=== PATIENT | female | born 1995 | race Caucasian/White ===

== ENCOUNTER → 2017-10-01 | Outpatient (CLI) | payer OTHER | LOC: M RAD 15:54 | DX: Z36.2 Encounter for other antenatal screening follow-up (principal) ==

== ENCOUNTER → 2017-11-24 | Outpatient (CLI) | payer OTHER ==
[2017-11-24 10:52] LABS: HEMATOCRIT 29.7 % (36.0-47.0); HEMOGLOBIN 10.1 g/dl (12.0-16.0); MEAN CORPUSCULAR HEMOGLOBIN 28.8 pg (27.0-33.0); MEAN CORPUSCULAR VOLUME 84.6 fl (80.0-96.0); PLATELET COUNT, AUTOMATED 290 10^3/uL (150-450); RED BLOOD COUNT 3.51 10^6/uL (4.00-5.40); WHITE BLOOD COUNT 11.2 10^3/uL (4.0-10.0)
[2017-11-24 11:13] LABS: GLUCOSE CHALLENGE TEST 1 HOUR 113 MG/DL (LESS THAN 140)
== END ==
LOC: M LAB 09:08
DX: Z34.82 Encounter for supervision of other normal pregnancy, second trimester (principal)

== ENCOUNTER → 2018-02-05 | Outpatient (REF) | payer OTHER | LOC: M LAB REF 17:07 | DX: Z34.83 Encounter for supervision of other normal pregnancy, third trimester (principal); Z3A.00 Weeks of gestation of pregnancy not specified ==

== ENCOUNTER 2018-02-21 09:37 | Outpatient (CLI) | payer OTHER | END 2018-02-21 11:24 | disposition home or self-care (01) | LOC: M LDO 09:37 | DX: O26.893 Other specified pregnancy related conditions, third trimester (principal); Z3A.38 38 weeks gestation of pregnancy | CPT/HCPCS: 59025 ==

== ENCOUNTER 2018-02-22 01:10 | Inpatient (IN) | payer OTHER ==
[2018-02-22] MEDS ORDERED: LR 1,000 ML IV (01:42)
[2018-02-22] MEDS: LACTATED RINGER'S 1000 ML IV (01:42)
[2018-02-22] MEDS: BICITRA 30ML SOLN UDC PO (01:45)
[2018-02-22] MEDS: ceFAZolin SOD 1 GM in D5W MINI-BAG PLUS 50 ML IV (01:45)
[2018-02-22 01:47] LABS: HEMOGLOBIN 11.2 g/dl (12.0-15.5); MEAN CORPUSCULAR HEMOGLOBIN 26.9 pg (27.0-33.0); MEAN CORPUSCULAR HGB CONC 33.9 g/dl (32.0-36.5); MEAN CORPUSCULAR VOLUME 79.1 fl (80.0-96.0); PLATELET COUNT, AUTOMATED 300 10^3/uL (150-450); RED BLOOD COUNT 4.17 10^6/uL (4.00-5.40); RED CELL DISTRIBUTION WIDTH 13.7 % (11.5-14.5); WHITE BLOOD COUNT 12.9 10^3/uL (4.0-10.0)
[2018-02-22] MEDS ORDERED: MORPHINE PRES-FREE INJ 10 MG/10 ML VIAL (J2274) As Ordered (02:05)
[2018-02-22] MEDS ORDERED: NALBUPHINE HCL 10 MG/ML AMP (J2300) IV (02:12)
[2018-02-22] MEDS ORDERED: NALOXONE INJ 0.4 MG/1 ML VIAL (J2310) IV ×2 (02:12)
[2018-02-22] MEDS ORDERED: ONDANSETRON 4MG/2ML VIAL (J2405) IV ×2 (02:12→03:30)
[2018-02-22] MEDS ORDERED: KETOROLAC 60 MG/2 ML VIAL (J1885) As Ordered (02:33)
[2018-02-22] MEDS ORDERED: OXYTOCIN INJ 10 UNITS/ML VIAL (J2590) As Ordered ×3 (02:33)
[2018-02-22] MEDS ORDERED: ONDANSETRON 4MG/2ML VIAL (J2405) As Ordered (02:33)
[2018-02-22] MEDS ORDERED: ePHEDrine SULFATE 25 MG/5 ML(5MG/ML) SYRINGE As Ordered (02:47)
[2018-02-22] MEDS: LR 1,000 ML IV ×2 (03:07→03:30)
[2018-02-22] MEDS ORDERED: DOCUSATE SODIUM 100 MG CAP PO (03:15)
[2018-02-22] MEDS ORDERED: RHOGAM 300 MCG (1500 IU) INJ (J2790) IM (03:15)
[2018-02-22] MEDS ORDERED: MEASLES,MUMPS,RUBELLA VACCINE INJ (MMR-II) (90707) SC (03:15)
[2018-02-22] MEDS ORDERED: MEPERIDINE INJ 25 MG/ML VIAL (J2175) As Ordered (03:24)
[2018-02-22] MEDS ORDERED: METOCLOPRAMIDE INJ 10MG/2ML VIAL (J2765) IV (03:30)
[2018-02-22] MEDS ORDERED: fentaNYL 100 MCG/2 ML INJECTION (J3010) IV (03:30)
[2018-02-22] MEDS: MEPERIDINE INJ 25 MG/ML VIAL (J2175) IV (03:34)
[2018-02-22] MEDS: METHYLERGONOVINE MALEATE 0.2 MG/ML VIAL (J2210) IM (04:00)
[2018-02-22] MEDS: PERCOCET 5MG/325MG TAB PO (06:18)
[2018-02-22] MEDS: PRENATAL VITAMINS CHEWABLE TABLET PO (08:12)
[2018-02-22] MEDS: KETOROLAC 30 MG/ML VIAL (J1885) IV ×3 (08:12→20:31)
[2018-02-22] MEDS: METOCLOPRAMIDE INJ 10MG/2ML VIAL (J2765) IV (13:40)
[2018-02-22] MEDS: ONDANSETRON 4MG/2ML VIAL (J2405) IV (20:31)
[2018-02-23] MEDS: ONDANSETRON 4MG/2ML VIAL (J2405) IV (02:42)
[2018-02-23] MEDS: KETOROLAC 30 MG/ML VIAL (J1885) IV (02:43)
[2018-02-23 07:43] LABS: HEMATOCRIT 29.6 % (36.0-47.0); HEMOGLOBIN 9.9 g/dl (12.0-15.5); MEAN CORPUSCULAR HEMOGLOBIN 26.9 pg (27.0-33.0); MEAN CORPUSCULAR HGB CONC 33.4 g/dl (32.0-36.5); MEAN CORPUSCULAR VOLUME 80.4 fl (80.0-96.0); PLATELET COUNT, AUTOMATED 273 10^3/uL (150-450); RED BLOOD COUNT 3.68 10^6/uL (4.00-5.40)
[2018-02-23] MEDS: PRENATAL VITAMINS CHEWABLE TABLET PO (08:31)
[2018-02-23] MEDS: IBUPROFEN 800 MG TAB PO (10:29)
[2018-02-23] MEDS: PERCOCET 5MG/325MG TAB PO (14:46)
== END 2018-02-23 16:20 | disposition home or self-care (01) | DRG 766 ==
LOC: M LDI 01:10 → M OBS 05:15
PROVIDERS: Specialist
PROC: 10D00Z1 Extraction of Products of Conception, Low, Open Approach (ICD-10-PCS; principal; 2018-02-22 02:11)
DX: O82 Encounter for cesarean delivery without indication (principal); Z3A.39 39 weeks gestation of pregnancy; Z37.0 Single live birth; Z87.59 Personal history of other complications of pregnancy, childbirth and the puerperium

== ENCOUNTER → 2018-04-17 | Outpatient (CLI) | payer OTHER ==
[2018-04-17 13:15] LABS: BASO # 0.1 10^3/uL (0.0-0.2); BASO % 1.2 % (0.0-1.0); EOS # 0.1 10^3/uL (0.0-0.50); EOS % 1.4 % (0.0-3.0); HEMATOCRIT 39.8 % (36.0-47.0); IMMATURE GRANULOCYTE % 0.5 % (0-3.0); LYMPH # 2.2 10^3/uL (1.5-6.5); LYMPH % 37.4 % (24.0-44.0); MEAN CORPUSCULAR HEMOGLOBIN 26.6 pg (27.0-33.0); MEAN CORPUSCULAR HGB CONC 32.7 g/dl (32.0-36.5); MEAN CORPUSCULAR VOLUME 81.6 fl (80.0-96.0); MONO # 0.5 10^3/uL (0.0-0.8); NEUTROPHILS # 2.9 10^3/uL (1.8-7.7); NEUTROPHILS % 50.5 % (36.0-66.0); PLATELET COUNT, AUTOMATED 312 10^3/uL (150-450); RED BLOOD COUNT 4.88 10^6/uL (4.00-5.40); RED CELL DISTRIBUTION WIDTH 13.6 % (11.5-14.5); WHITE BLOOD COUNT 5.8 10^3/uL (4.0-10.0)
[2018-04-17 13:33] LABS: ESTIMATED AVERAGE GLUCOSE 94 MG/DL (60-110); HEMOGLOBIN A1c 4.9 %
[2018-04-17 13:56] LABS: ALBUMIN 3.9 GM/DL (3.2-5.2); ALBUMIN/GLOBULIN RATIO 1.26 (1.00-1.93); ALKALINE PHOSPHATASE 106 U/L (45-117); ALT/SGPT 39 U/L (12-78); ANION GAP 7 MEQ/L (8-16); AST/SGOT 17 U/L (7-37); BILIRUBIN,TOTAL 0.3 MG/DL (0.2-1.0); BLOOD UREA NITROGEN 8 MG/DL (7-18); C REACTIVE PROTEIN QUANTITATIV < 0.30 MG/DL (0.00-0.30); CALCIUM LEVEL 8.8 MG/DL (8.5-10.1); CARBON DIOXIDE LEVEL 29 MEQ/L (21-32); CHLORIDE LEVEL 107 MEQ/L (98-107); CHOLESTEROL LEVEL 182 MG/DL (<200); CHOLESTEROL RISK RATIO 2.843 (<5); CREATININE FOR GFR 0.63 MG/DL (0.55-1.30); FREE T4 0.75 NG/DL (0.76-1.46); GLOMERULAR FILTRATION RATE > 60.0 (>60); GLUCOSE, FASTING 85 MG/DL (70-100); HDL CHOLESTEROL 64 MG/DL (>40); LDL CHOLESTEROL 92.8 MG/DL (<100); NON-HDL-C 118 MG/DL; POTASSIUM SERUM 4.1 MEQ/L (3.5-5.1); PTH INTACT 67.1 PG/ML (18.5-88.0); SODIUM LEVEL 143 MEQ/L (136-145); THYROID STIMULATING HORMONE 0.839 uIU/ML (0.358-3.740); TOTAL 25(OH) VITAMIN D 17.5 NG/ML (30.0-100.0); TRIGLYCERIDES LEVEL 126 MG/DL (<150)
== END ==
LOC: M LAB 12:19
DX: Z83.3 Family history of diabetes mellitus (principal)

== ENCOUNTER 2019-05-31 08:01 | Emergency (ER) | payer OTHER ==
[~2019-05-31] VITALS: Ht 157.5 cm; Wt 62.3 kg
[~2019-05-31 08:01] MED LIST: COLA100C5 PO; IBUP-1114 PO; OXYC1TAB23 PO; PREN27TA3 PO; TUMS500C PO
[2019-05-31] MEDS ORDERED: ONDA4TAB5 PO (08:07)
[2019-05-31 08:26] LABS: BASO # 0.1 10^3/uL (0.0-0.2); BASO % 0.8 % (0.0-1.0); EOS % 0.5 % (0.0-3.0); HEMATOCRIT 42.3 % (36.0-47.0); HEMOGLOBIN 14.5 g/dl (12.0-15.5); LYMPH # 1.9 10^3/uL (1.5-5.0); LYMPH % 31.5 % (24.0-44.0); MEAN CORPUSCULAR HEMOGLOBIN 29.4 pg (27.0-33.0); MEAN CORPUSCULAR HGB CONC 34.3 g/dl (32.0-36.5); MEAN CORPUSCULAR VOLUME 85.6 fl (80.0-96.0); MONO # 0.5 10^3/uL (0.0-0.8); NEUTROPHILS # 3.6 10^3/uL (1.5-8.5); NEUTROPHILS % 58.9 % (36.0-66.0); PLATELET COUNT, AUTOMATED 321 10^3/uL (150-450); RED BLOOD COUNT 4.94 10^6/uL (4.00-5.40); WHITE BLOOD COUNT 6.2 10^3/uL (4.0-10.0)
--- NOTE | 2019-05-31 10:13 | REP ---
REASON: Vaginal bleeding. PERTINENT PRIORS: None. Transvesical and transvaginal imaging were obtained. The uterus measures 7.6 x 3.6 x 4.5 cm. The parenchymal echopattern is within normal limits. The endometrial echocomplex is seen with a small nearly anechoic structure in the endometrial cavity. This is slightly irregular. By measurements, this would be consistent with a gestational age of 5 weeks 5 days. Doppler of the anechoic structure, shows no cardiac activity. No echogenic material is identifiable in the suspected gestational sac that would be considered consistent with a pole. Both ovaries are within normal limits. The right measures 2.4 x 1.2 x 1.6 cm, and the left 2.3 x 1.8 x 2 cm. The right ovarian RI is 0.52 and the left is 0.56. IMPRESSION: Possible early IUP, as described above. This needs to be correlated clinically with appropriate followup. Electronically Signed by Leland Monahan DO 05/31/2019 11:23 A
[2019-05-31 10:27] VITALS: BP 134/74
[2019-05-31 11:32] LABS: CHLAMYDIA DNA AMPLIFICATION NEGATIVE (NEGATIVE); GC DNA AMPLIFICATION NEGATIVE (NEGATIVE)
== END 2019-05-31 10:28 | disposition home or self-care (01) ==
LOC: M ED 08:01
DX: O26.851 Spotting complicating pregnancy, first trimester (principal); Z88.2 Allergy status to sulfonamides; Z3A.00 Weeks of gestation of pregnancy not specified

== ENCOUNTER → 2019-06-02 | Outpatient (CLI) | payer OTHER ==
[~2019-06-02] MED LIST changes: +IBUP80TA PO; +ONDA-83 PO; +ZOFR4TAB16 PO
[2019-06-02 09:20] LABS: BASO # 0.1 10^3/uL (0.0-0.2); BASO % 1.1 % (0.0-1.0); EOS # 0.1 10^3/uL (0.0-0.5); EOS % 1.4 % (0.0-3.0); HEMATOCRIT 39.7 % (36.0-47.0); HEMOGLOBIN 13.7 g/dl (12.0-15.5); LYMPH # 1.8 10^3/uL (1.5-5.0); LYMPH % 31.9 % (24.0-44.0); MEAN CORPUSCULAR HGB CONC 34.5 g/dl (32.0-36.5); MEAN CORPUSCULAR VOLUME 83.9 fl (80.0-96.0); MONO # 0.5 10^3/uL (0.0-0.8); MONO % 8.1 % (0.0-5.0); NEUTROPHILS # 3.3 10^3/uL (1.5-8.5); PLATELET COUNT, AUTOMATED 319 10^3/uL (150-450); RED BLOOD COUNT 4.73 10^6/uL (4.00-5.40); WHITE BLOOD COUNT 5.7 10^3/uL (4.0-10.0)
[2019-06-02 10:04] LABS: ALBUMIN 4.2 GM/DL (3.2-5.2); ALT/SGPT 17 U/L (12-78); BILIRUBIN,TOTAL 0.6 MG/DL (0.2-1.0); BLOOD UREA NITROGEN 8 MG/DL (7-18); CALCIUM LEVEL 8.7 MG/DL (8.5-10.1); CARBON DIOXIDE LEVEL 25 MEQ/L (21-32); CHLORIDE LEVEL 106 MEQ/L (98-107); CREATININE FOR GFR 0.69 MG/DL (0.55-1.30); GLOMERULAR FILTRATION RATE > 60.0 (>60); GLUCOSE, FASTING 94 MG/DL (70-100); HCG, SERUM QUANTITATIVE 1351 MIU/ML; POTASSIUM SERUM 3.8 MEQ/L (3.5-5.1); SODIUM LEVEL 139 MEQ/L (136-145); TOTAL PROTEIN 6.7 GM/DL (6.4-8.2)
== END ==
LOC: M LAB 07:19
PROVIDERS: ATTEND Obstetrics & Gynecology
DX: O20.0 Threatened abortion (principal); Z3A.00 Weeks of gestation of pregnancy not specified

== ENCOUNTER → 2019-06-04 | Outpatient (CLI) | payer OTHER | LOC: M LAB 07:26 | PROVIDERS: ATTEND Advanced Practice Midwife | DX: O20.0 Threatened abortion (principal) ==

== ENCOUNTER → 2019-06-06 | Outpatient (CLI) | payer OTHER ==
[~2019-06-06] MED LIST changes: -ONDA-83 PO; +ONDA4TAB5 PO
--- NOTE | 2019-06-06 07:36 | REP ---
First trimester obstetric ultrasound for threatened : The studies performed transabdominal, endovaginal and Doppler ultrasound assessment. The uterus is anteverted and normal size measuring 8.0 x 3.5 x 5.6 cm. The endometrium is not thickened measuring 7.5 mm. There is no intrauterine gestational sac or pole. The right ovary measures 2.5 x 1.3 x 2.4 cm. The left ovary measures 2.8 x 1.9 x 2.5 cm. The ovaries are normal size. There are no dominant ovarian masses or cysts. There is no free fluid in the pelvis. There is vascular flow in both ovaries. The Doppler resistive index in the parenchymal arteries of the right ovary is 0.73 and left ovary 0.62. Impression: There is no visible intrauterine gestation at this time . Otherwise, negative pelvic ultrasound. Electronically Signed by Vishal Caballero MD 06/06/2019 07:28 A
== END ==
LOC: M RAD 06:05
PROVIDERS: ATTEND Obstetrics & Gynecology
DX: O02.0 Blighted ovum and nonhydatidiform mole (principal)

== ENCOUNTER → 2019-06-09 | Outpatient (CLI) | payer OTHER | LOC: M LAB 10:48 | PROVIDERS: ATTEND Advanced Practice Midwife | DX: O20.0 Threatened abortion (principal); Z3A.00 Weeks of gestation of pregnancy not specified ==

== ENCOUNTER → 2019-06-09 | Outpatient (REF) | payer OTHER | LOC: M LAB REF 15:45 | PROVIDERS: ATTEND Obstetrics & Gynecology | DX: O20.0 Threatened abortion (principal) ==

== ENCOUNTER 2019-06-10 15:30 | Observation (INO) | payer OTHER ==
[~2019-06-10] VITALS: Ht 160 cm; Wt 63.1 kg
[~2019-06-10 15:30] MED LIST changes: -IBUP80TA PO; -ZOFR4TAB16 PO
[2019-06-10 16:16] LABS: BASO # 0.1 10^3/uL (0.0-0.2); BASO % 0.8 % (0.0-1.0); EOS # 0.1 10^3/uL (0.0-0.5); EOS % 1.5 % (0.0-3.0); HEMATOCRIT 40.5 % (36.0-47.0); HEMOGLOBIN 14.3 g/dl (12.0-15.5); LYMPH % 27.4 % (24.0-44.0); MEAN CORPUSCULAR HEMOGLOBIN 30.2 pg (27.0-33.0); MEAN CORPUSCULAR HGB CONC 35.3 g/dl (32.0-36.5); MEAN CORPUSCULAR VOLUME 85.6 fl (80.0-96.0); MONO # 0.6 10^3/uL (0.0-0.8); MONO % 7.8 % (0.0-5.0); NEUTROPHILS # 4.6 10^3/uL (1.5-8.5); NEUTROPHILS % 62.2 % (36.0-66.0); PLATELET COUNT, AUTOMATED 295 10^3/uL (150-450); RED BLOOD COUNT 4.73 10^6/uL (4.00-5.40); WHITE BLOOD COUNT 7.3 10^3/uL (4.0-10.0)
[2019-06-10 16:56] LABS: ALBUMIN 4.2 GM/DL (3.2-5.2); ALT/SGPT 14 U/L (12-78); BILIRUBIN,DIRECT 0.1 MG/DL (0.0-0.2); BILIRUBIN,TOTAL 0.3 MG/DL (0.2-1.0); BLOOD UREA NITROGEN 6 MG/DL (7-18); CALCIUM LEVEL 9.1 MG/DL (8.5-10.1); CARBON DIOXIDE LEVEL 26 MEQ/L (21-32); CHLORIDE LEVEL 106 MEQ/L (98-107); CREATININE FOR GFR 0.65 MG/DL (0.55-1.30); GLOMERULAR FILTRATION RATE > 60.0 (>60); GLUCOSE, FASTING 91 MG/DL (70-100); HCG, SERUM QUANTITATIVE 1896 MIU/ML; LIPASE 180 U/L (73-393); SODIUM LEVEL 141 MEQ/L (136-145); TOTAL PROTEIN 7.3 GM/DL (6.4-8.2)
--- NOTE | 2019-06-10 18:08 | REP ---
Emergency first trimester obstetric sonography: History: Pelvic pain rule out ectopic. 7 weeks 4 days by dates. Transabdominal and transvaginal scanning are performed. Uterus is normal in size with dimensions of 8.4 x 3.5 x 4.5 cm. Endometrial echo measures 0.5 cm in thickness. The uterus is empty. No intrauterine gestation is seen. A uterine myomectomy scar is observed. The right ovary has a normal appearance with dimensions of 2.8 x 1.2 x 2.1 cm. Its Doppler flow is normal, resistive index is 0.65. The left ovary measures 2.4 x 1.4 x 2.1 cm. Normal Doppler flow is seen in the left ovary, resistive index 0.64. There is a hyperechoic area adjacent the left ovary in the left adnexa measuring 1.7 x 1.3 x 2.1 cm. This is of uncertain significance. It does demonstrate Doppler flow but does not appear to be a gestational sac. There is no evidence of adnexal fluid or cul-de-sac fluid. Impression: Nodular structure 2.1 cm in greatest diameter adjacent to the left ovary in the left adnexa of uncertain significance. No intrauterine gestation. No free fluid noted. Clinical and possibly sonographic followup is advised. Ectopic is not excluded. Electronically Signed by Ramon Francis MD 06/10/2019 06:24 P
[2019-06-10 22:41] VITALS: BP 115/72
[2019-06-11 00:27] LABS: BLOOD UREA NITROGEN 7 MG/DL (7-18); CALCIUM LEVEL 8.8 MG/DL (8.5-10.1); CARBON DIOXIDE LEVEL 27 MEQ/L (21-32); CHLORIDE LEVEL 109 MEQ/L (98-107); CREATININE FOR GFR 0.64 MG/DL (0.55-1.30); GLOMERULAR FILTRATION RATE > 60.0 (>60); GLUCOSE, FASTING 108 MG/DL (70-100); POTASSIUM SERUM 3.4 MEQ/L (3.5-5.1); SODIUM LEVEL 143 MEQ/L (136-145)
[2019-06-11] MEDS ORDERED: ACETAMINOPHEN 500 MG TAB PO PRN (00:45)
[2019-06-11 06:00] VITALS: BP 116/72
[2019-06-11 06:24] LABS: HEMATOCRIT 38.5 % (36.0-47.0); HEMOGLOBIN 13.4 g/dl (12.0-15.5); MEAN CORPUSCULAR HEMOGLOBIN 29.1 pg (27.0-33.0); MEAN CORPUSCULAR HGB CONC 34.8 g/dl (32.0-36.5); MEAN CORPUSCULAR VOLUME 83.5 fl (80.0-96.0); PLATELET COUNT, AUTOMATED 283 10^3/uL (150-450); RED BLOOD COUNT 4.61 10^6/uL (4.00-5.40); WHITE BLOOD COUNT 6.3 10^3/uL (4.0-10.0)
[2019-06-11 07:07] LABS: ALBUMIN 3.8 GM/DL (3.2-5.2); ALT/SGPT 15 U/L (12-78); BILIRUBIN,TOTAL 0.6 MG/DL (0.2-1.0); BLOOD UREA NITROGEN 8 MG/DL (7-18); CALCIUM LEVEL 8.8 MG/DL (8.5-10.1); CARBON DIOXIDE LEVEL 23 MEQ/L (21-32); CHLORIDE LEVEL 108 MEQ/L (98-107); CREATININE FOR GFR 0.63 MG/DL (0.55-1.30); GLOMERULAR FILTRATION RATE > 60.0 (>60); GLUCOSE, FASTING 92 MG/DL (70-100); HCG, SERUM QUANTITATIVE 2153 MIU/ML; POTASSIUM SERUM 3.8 MEQ/L (3.5-5.1); SODIUM LEVEL 142 MEQ/L (136-145); TOTAL PROTEIN 6.4 GM/DL (6.4-8.2)
[2019-06-11] MEDS ORDERED: ONDANSETRON 4 MG TAB (S0181) PO PRN (09:00)
[2019-06-11] MEDS ORDERED: METHOTREXATE 50MG/2ML VIAL (J9260 PER 50MG) IM ONE ×2 (10:00→11:00)
--- NOTE | 2019-06-11 16:01 | HPE ---
DATE OF ADMISSION: 06/10/2019 REASON FOR ADMISSION: The patient was initially admitted for observation with concerns of ectopic . HISTORY OF PRESENT ILLNESS: Mrs. Bedoya is a 24-year-old, 3, para 2, who presented to the emergency room (ER) with complaints of left-side discomfort. This is a patient who initially presented and was evaluated early . She has been following with serial quant as well as ultrasounds. As of the 09 of June she was evaluated in office where she was noted to have an appropriate rise in her HCG levels. She had an ultrasound that showed no intrauterine , no adnexal masses, no free fluid. Endometrial stripe was thin. She underwent an endometrial biopsy for evaluation of to rule out a missed . On day of presentation, she was evaluated and was noted to have stable hemoglobin and hematocrit (H/H). Her initial HCG level had decreased from 2100 to 1800. Her pain had resolved spontaneously and she minimal amounts of bleeding. She was admitted for observation, had repeat labs at the 8 hour jeremías. At which time, her HCG had increased to 2100. Her H/H remained stable. At this point of her evaluation it was determined that she has an ectopic . PAST MEDICAL HISTORY: None. PAST SURGICAL HISTORY: 1. She has had one section. 2. Oral surgery. 3. Two knee surgeries. OBSTETRICAL HISTORY: She is 3, para 2. She has had one term vaginal delivery and this was followed by an elective section both at term. MEDICATIONS (currently include): - vitamins - Zofran She has ALLERGIES to SULFA. SOCIAL HISTORY: She denies any alcohol, tobacco or drug use. She lives at home with her and two daughters. PHYSICAL EXAM: Her vital signs are stable. She is afebrile. General appearance is well appearing, no acute distress. Her lungs are clear to auscultation bilaterally. Cardiovascular: Heart regular rate and rhythm. Abdomen: Soft, nontender. Pelvic exam was deferred. ULTRASOUND: She had an ultrasound done the day of presentation that showed a1 cm nodular structure left of the ovary of uncertain significance. No intrauterine was identified. No free fluid was identified. LABS: Blood type is A+. AST was 15, ALT 64. Her ECG funmi has plateaued at 2153. CBC: White count 6.3, hemoglobin 13.4, hematocrit 30.5, platelets of 283. ASSESSMENT: Mrs. Bedoya is a 24-year-old, 3, para 2, with plateauing her ECG funmi with nonspecific left adnexal mass concerning for well ectopic . She is hemodynamically stable. PLAN: 1. Discussed management options and diagnosis for ectopic . Management options were discussed that included surgery with laparoscopic salpingostomy verus salpingectomy. I also discussed medical management using methotrexate. I discussed risks and benefits concerning both management options. After consultation, after all questions have been answered, the patient has elected to proceed with medical management with methotrexate. 2. Calculated dose of methotrexate is 84 mg IM. 3. Plan to obtain a repeat ECG day #4 and again on day #7. Mrs. Bedoya has been provided with these instructions. She is also instructed to remain on pelvic rest and avoid vitamins, supplements folic acid, as well as avoidance alcohol and prolonged sunlight, and she will followup with me in 1 week.
== END 2019-06-11 14:40 | disposition home or self-care (01) ==
LOC: M ED 15:30 → M ED INP 18:19 → M MSPAV 22:41
PROVIDERS: ADMIT Obstetrics & Gynecology; ATTEND Obstetrics & Gynecology
DX: O00.109 Unspecified tubal pregnancy without intrauterine pregnancy (principal); Z88.2 Allergy status to sulfonamides
CPT/HCPCS: 36415; 76801; 80048; 80053; 80076; 81001; 83690; 84702; 85025; 85027; 96372; 99284; J9260

== ENCOUNTER → 2019-06-10 | Outpatient (CLI) | payer OTHER | LOC: M LAB 07:45 | PROVIDERS: ATTEND Obstetrics & Gynecology | DX: O20.0 Threatened abortion (principal); Z3A.00 Weeks of gestation of pregnancy not specified ==

== ENCOUNTER 2019-06-13 12:15 | Day surgery (SDC) | payer OTHER ==
[~2019-06-13] VITALS: Ht 160 cm; Wt 62.6 kg
[2019-06-13] MEDS ORDERED: ONDANSETRON 4MG/2ML VIAL (J2405) IV ONE (13:00)
[2019-06-13] MEDS ORDERED: NS 1,000 ML IV ONE (13:00)
[2019-06-13] MEDS ORDERED: MORPHINE 4 MG/ML 1ML VIAL/SYRINGE (J2270) IV ONE (13:00)
[2019-06-13 13:23] LABS: BASO % 0.4 % (0.0-1.0); EOS # 0.1 10^3/uL (0.0-0.5); EOS % 0.5 % (0.0-3.0); HEMATOCRIT 40.1 % (36.0-47.0); LYMPH # 1.6 10^3/uL (1.5-5.0); LYMPH % 15.3 % (24.0-44.0); MEAN CORPUSCULAR HEMOGLOBIN 29.1 pg (27.0-33.0); MEAN CORPUSCULAR HGB CONC 34.9 g/dl (32.0-36.5); MEAN CORPUSCULAR VOLUME 83.4 fl (80.0-96.0); MONO # 0.5 10^3/uL (0.0-0.8); MONO % 4.6 % (0.0-5.0); NEUTROPHILS % 78.9 % (36.0-66.0); PLATELET COUNT, AUTOMATED 305 10^3/uL (150-450); RED BLOOD COUNT 4.81 10^6/uL (4.00-5.40); WHITE BLOOD COUNT 10.2 10^3/uL (4.0-10.0)
--- NOTE | 2019-06-13 13:45 | REP ---
FIRST TRIMESTER ULTRASOUND: Real-time sonographic evaluation of the pelvis performed utilizing transabdominal and endovaginal technique. Uterus measures 7.8 x 3.6 x 4.2 cm. Endometrial thickness is 7 mm. There is no intrauterine gestational sac. Ovaries are normal in size and echotexture, right ovary measuring 1.8 x 1.9 x 2.3 cm and left ovary 2.9 x 1.5 x 2.2 cm. There is no ovarian torsion with duplex Doppler evaluation. Mass adjacent to the left ovary now measures 3.4 x 2.9 x 5.1 cm, previously 1.7 x 1.3 x 2.1 cm. New complex free fluid is seen of a moderate degree. Findings are concerning for possible ruptured ectopic . Findings are discussed with Brady Kern in the emergency department at 1:22pm 06/13/2019. Electronically Signed by Vishal Mccauley MD 06/13/2019 04:42 P
[2019-06-13] MEDS ORDERED: BUPIVACAINE HCL 0.25% 30 ML VIAL As Ordered ONE (14:07)
[2019-06-13] MEDS ORDERED: fentaNYL 100 MCG/2 ML INJECTION (J3010) As Ordered ONE ×2 (14:10→16:36)
[2019-06-13] MEDS ORDERED: ROCURONIUM BROMIDE 50 MG/5 ML VIAL As Ordered ONE (14:10)
[2019-06-13] MEDS ORDERED: LIDOCAINE 2% INJ 100 MG/5 ML SDV (FOR ANES.) As Ordered ONE (14:10)
[2019-06-13] MEDS ORDERED: PROPOFOL 200 MG/20 ML VIAL As Ordered ONE (14:10)
[2019-06-13] MEDS ORDERED: MIDAZOLAM INJ 2 MG/2 ML VIAL (J2250) As Ordered ONE (14:11)
[2019-06-13] MEDS ORDERED: dexameTHASONE 4 MG/ML 1ML VIAL (J1100) As Ordered ONE (14:11)
[2019-06-13] MEDS ORDERED: ONDANSETRON 4MG/2ML VIAL (J2405) As Ordered ONE (14:11)
[2019-06-13] MEDS ORDERED: SILVER NITRATE APPLICATOR As Ordered ONE (14:14)
[2019-06-13] MEDS ORDERED: NS 1,000 ML IV SCH (14:29)
[2019-06-13] MEDS ORDERED: LR 1,000 ML IV SCH (15:00)
[2019-06-13] MEDS ORDERED: METOCLOPRAMIDE INJ 10MG/2ML VIAL (J2765) IV PRN (15:00)
[2019-06-13] MEDS ORDERED: ONDANSETRON 4MG/2ML VIAL (J2405) IV PRN (15:00)
[2019-06-13] MEDS ORDERED: oxyCODONE 5MG TAB PO PRN (15:00)
[2019-06-13] MEDS ORDERED: ACETAMINOPHEN 1000MG 100ML IV BTL (OFIRMEV) (J0131 PER 10MG) As Ordered ONE (15:37)
[2019-06-13] MEDS ORDERED: KETOROLAC 60 MG/2 ML VIAL (J1885) As Ordered ONE (15:41)
[2019-06-13] MEDS ORDERED: SUGAMMADEX SODIUM 500 MG/5 ML VIAL (BRIDION) As Ordered ONE (15:42)
[2019-06-13] MEDS ORDERED: OXYC1TAB23 PO (16:25)
[2019-06-13] MEDS ORDERED: IBUP80TA PO (16:26)
[2019-06-13] MEDS ORDERED: COLA100C5 PO (16:27)
[2019-06-13] MEDS ORDERED: ZOFR4TAB16 PO (16:27)
[2019-06-13] MEDS ORDERED: oxyCODONE 5MG TAB As Ordered ONE (16:36)
[2019-06-13] MEDS ORDERED: METOCLOPRAMIDE INJ 10MG/2ML VIAL (J2765) As Ordered ONE (16:36)
[2019-06-13] MEDS: fentaNYL 100 MCG/2 ML INJECTION (J3010) IV PRN ×4 (16:41→17:02)
[2019-06-13 18:35] VITALS: BP 116/61
--- NOTE | 2019-06-14 | RO ---
DATE OF PROCEDURE: 06/13/2019 PREOPERATIVE DIAGNOSIS: Ruptured left ectopic . POSTOPERATIVE DIAGNOSIS: Ruptured left ectopic . PROCEDURE PERFORMED: Laparoscopic left salpingectomy/removal of left ectopic . SURGEON: Deshawn Carvajal DO SCOREBOARD OPERATOR: Camilla Love DO ANESTHESIA TYPE: General endotracheal. SPECIMENS SENT TO PATHOLOGY: Left fallopian tube with an ectopic . ESTIMATED BLOOD LOSS: 100-200 mL of hemoperitoneum at the beginning of surgery, 5 mL of intraoperative blood loss. FLUIDS REPLACED: 1200 mL lactated Ringer's. DRAINS: Bassett catheter 300 mL urine output. COMPLICATIONS: None. FINDINGS: Left ectopic , ampulla to the fimbria, ruptured with approximately 100-200 mL of hemoperitoneum. The left fallopian tube was obliterated to the fimbriated end, so the decision was made to perform a left salpingectomy. She had minor adhesions along the left pelvic sidewall, and the right fallopian tube looked completely normal, as well as the right and left ovaries. The uterus looked normal as well. DESCRIPTION OF PROCEDURE: The patient was counseled and consented on the risks, benefits, indications, and alternatives of the procedure. Informed consent was obtained. She was taken to the operating room with an IV running and placed on the operating table in the dorsal supine position. General anesthesia was administered and airway secured without any difficulty. She was then placed in the low lithotomy position. She was prepared and draped in a normal sterile fashion. A time-out was performed per protocol. Attention was turned to the pelvis. A Bassett catheter was placed under sterile conditions. A sterile speculum was placed for good visualization of the cervix. The anterior lip of the cervix was grasped with a single-tooth tenaculum and downward traction was applied. The ZUMI uterine manipulator was then placed through the cervix into the uterus for uterine manipulation without any difficulty. The single-tooth tenaculum was removed. The tenaculum sites were noted to be hemostatic. The speculum was removed. A glove switch was performed. Attention was turned to the abdomen. A 10 mm incision was made in the umbilicus after injection of 5 mL of 0.25% Marcaine. Through this incision, a Veress needle was placed into the intraperitoneal cavity. Intraperitoneal placement was confirmed with ease of flow of normal saline, negative return on aspiration, and a positive drop test. The opening pressure was 2 mmHg. The abdomen was insufflated with 2 liters of gas. The Veress needle was removed. The size 11 XL laparoscopic trocar was placed through the umbilical incision and entry into the intraperitoneal cavity was achieved without any incidental bleeding or injury. The patient was placed in steep Trendelenburg and the findings are noted above. Given the findings, two additional laparoscopic port sites were placed through 5 mm incisions in the left lower quadrant. These laparoscopic cannulas were placed under direct visualization without any difficulty. Attention was turned to adhesiolysis of the left pelvic sidewall and fallopian tube, thus freeing the fallopian tube and the ectopic that was located from fimbriated end to ampulla. At the fimbriated end, atraumatic grasper was used to lift and elevate the fallopian tube. The underlying mesosalpinx/broad ligament was sequentially clamped, coagulated and transected with the LigaSure device until the level of the cornu was reached. At the level of the cornu, the left fallopian tube was clamped, coagulated and transected, thus amputating the left fallopian tube containing the ectopic . The ectopic was placed in the anterior cul-de-sac. The EndoCatch bag was used to remove the specimen without any difficulty. Inspection of the left adnexa surgical site revealed excellent hemostasis, a normal left ovary with an intact infundibulopelvic (IP) ligament. Given the lack of any bleeding, decision was made to conclude the procedure. The area was suction irrigated to clean up the site. Once this was done, gas was released from the abdomen. The patient was taken out of Trendelenburg and once all the gas was released from the abdomen, the cannulas were removed. The fascia at the umbilical incision was closed with #0 Vicryl with a llomeo-fb-clhoc stitch, thus closing this defect. The remaining skin incisions were closed with #4-0 Monocryl in subcuticular fashion and reinforced with Dermabond. Attention was turned back to the pelvis. The ZUMI uterine manipulator was removed in typical fashion, the Bassett catheter was removed. Sponge stick was placed in the vagina to assess amount of bleeding; there was minimal vaginal bleeding. The sponge stick was removed. All sponge, lap, needle and instrument counts were correct per protocol. The patient tolerated the entire procedure very well. She was transferred to the post-anesthesia care unit (PACU) in good and stable condition. SIMON
== END 2019-06-13 17:30 | disposition home or self-care (01) ==
LOC: M ED 12:15 → M SDC 12:16 → M ED 14:41 → M SDC 17:30
PROVIDERS: ATTEND Obstetrics & Gynecology
DX: O00.90 Unspecified ectopic pregnancy without intrauterine pregnancy (principal); K66.1 Hemoperitoneum; Z88.2 Allergy status to sulfonamides
CPT/HCPCS: 59151; 76801; 76817; 84702; 85025; 86850; 86900; 86901; 88305; 93976; 96361; 96374; 96375; 99284; J0131; J1100; J1885; J2250; J2270; J2405; J2765; J3010

== ENCOUNTER → 2019-09-22 | Outpatient (CLI) | payer OTHER ==
[~2019-09-22] MED LIST changes: +IBUP80TA PO; +ZOFR4TAB16 PO
[2019-09-22 08:25] LABS: HEMATOCRIT 42.5 % (36.0-47.0); HEMOGLOBIN 14.8 g/dl (12.0-15.5); MEAN CORPUSCULAR HEMOGLOBIN 29.2 pg (27.0-33.0); MEAN CORPUSCULAR HGB CONC 34.8 g/dl (32.0-36.5); MEAN CORPUSCULAR VOLUME 83.8 fl (80.0-96.0); PLATELET COUNT, AUTOMATED 374 10^3/uL (150-450); RED BLOOD COUNT 5.07 10^6/uL (4.00-5.40); WHITE BLOOD COUNT 6.4 10^3/uL (4.0-10.0)
[2019-09-22 08:55] LABS: ALBUMIN 3.5 GM/DL (3.2-5.2); ALT/SGPT 19 U/L (12-78); BILIRUBIN,TOTAL 0.4 MG/DL (0.2-1.0); BLOOD UREA NITROGEN 9 MG/DL (7-18); CALCIUM LEVEL 9.1 MG/DL (8.5-10.1); CARBON DIOXIDE LEVEL 24 MEQ/L (21-32); CHLORIDE LEVEL 105 MEQ/L (98-107); CREATININE FOR GFR 0.75 MG/DL (0.55-1.30); GLOMERULAR FILTRATION RATE > 60.0 (>60); GLUCOSE, FASTING 97 MG/DL (70-100); SODIUM LEVEL 139 MEQ/L (136-145); TOTAL PROTEIN 7.2 GM/DL (6.4-8.2)
[2019-09-22 09:04] LABS: FOLATE > 24.0 NG/ML (>5.4)
== END ==
LOC: M LAB 07:42
PROVIDERS: ATTEND Obstetrics & Gynecology
DX: Z87.59 Personal history of other complications of pregnancy, childbirth and the puerperium (principal)

== ENCOUNTER 2019-11-12 23:02 | Emergency (ER) | payer OTHER ==
[~2019-11-12] VITALS: Ht 160 cm; Wt 62.7 kg
[2019-11-12 23:02] VITALS: BP 160/87
[~2019-11-12 23:02] MED LIST changes: +ONDA-83 PO; -ONDA4TAB5 PO
[2019-11-12] MEDS ORDERED: LARI1TAB PO (23:07)
== END 2019-11-13 00:26 | disposition left against medical advice (07) ==
LOC: M ED 23:02
DX: Z53.21 Procedure and treatment not carried out due to patient leaving prior to being seen by health care provider (principal)

== ENCOUNTER → 2019-11-15 | Outpatient (CLI) | payer OTHER ==
[~2019-11-15] MED LIST changes: +LARI1TAB PO
== END ==
LOC: M LAB 08:05
PROVIDERS: ATTEND Advanced Practice Midwife
DX: O20.0 Threatened abortion (principal); Z3A.00 Weeks of gestation of pregnancy not specified

== ENCOUNTER → 2019-11-17 | Outpatient (CLI) | payer OTHER | LOC: M LAB 07:35 | PROVIDERS: ATTEND Advanced Practice Midwife | DX: O20.0 Threatened abortion (principal) ==

== ENCOUNTER → 2020-01-05 | Outpatient (CLI) | payer OTHER ==
[2020-01-05 13:53] LABS: HEMATOCRIT 39.6 % (36.0-47.0); MEAN CORPUSCULAR HEMOGLOBIN 29.5 pg (27.0-33.0); MEAN CORPUSCULAR HGB CONC 35.4 g/dl (32.0-36.5); MEAN CORPUSCULAR VOLUME 83.5 fl (80.0-96.0); PLATELET COUNT, AUTOMATED 292 10^3/uL (150-450); RED BLOOD COUNT 4.74 10^6/uL (4.00-5.40); WHITE BLOOD COUNT 7.9 10^3/uL (4.0-10.0)
[2020-01-05 14:25] LABS: HEPATITIS B SURFACE ANTIGEN NEGATIVE (NEGATIVE); RUBELLA IgG QUALITATIVE IMMUNE (IMMUNE)
[2020-01-05 14:42] LABS: HEPATITIS C VIRUS ABY INDEX 0.1 INDEX (<0.8); HIV 1&2 SCREEN CENTAUR NEGATIVE (NEGATIVE)
[2020-01-05 15:16] LABS: CHLAMYDIA DNA AMPLIFICATION NEGATIVE (NEGATIVE); GC DNA AMPLIFICATION NEGATIVE (NEGATIVE)
== END ==
LOC: M WUC 12:01
PROVIDERS: ATTEND Obstetrics & Gynecology
DX: Z34.91 Encounter for supervision of normal pregnancy, unspecified, first trimester (principal)

== ENCOUNTER → 2020-01-14 | Outpatient (REF) | payer OTHER | LOC: M SFHCWAGY 17:38 | PROVIDERS: ATTEND Advanced Practice Midwife | DX: Z34.91 Encounter for supervision of normal pregnancy, unspecified, first trimester (principal) ==

== ENCOUNTER → 2020-03-12 | Outpatient (CLI) | payer OTHER ==
--- NOTE | 2020-03-12 17:44 | REP ---
Clinical: Anatomical evaluation. Comparison: Could none . Findings: Examination demonstrates a single live intrauterine in breech presentation. motion is identified by technologist. Placenta is noted posterior/fundal and grade I without evidence for placenta previa or abruption. Amniotic fluid volume is normal. Cervix measures 3.3 cm in length and appears closed. No evidence for nuchal cord. Gestational age by current measurements 20 weeks 1 day with GENARO 07/29/2020 . FHR equals 140 beats per minute. BPD 4.7 cm 20 weeks 1 day HC 17.9 cm 20 weeks 2 days AC 15.3 cm 20 weeks 3 days FL 3.4 cm 20 weeks 4 days HL 3.4 cm 21 weeks 3 days HC/AC ratio 1.17 Estimated weight 358 grams ( 58th percentile). Anatomical assessment demonstrates normal structures including cranium, choroid plexus, cavum, cerebellum/posterior fossa, facial features, lungs, diaphragm, stomach, cord insertion/three-vessel cord, kidneys/bladder, spine, and extremities. Small echogenic focus in the left cardiac ventricle consistent with prominent chordae tendineae. Minuscule pericardial fluid cannot be excluded either. Impression: 1. Single live intrauterine in breech presentation demonstrating appropriate estimated weight. 2. Anatomical findings related to the heart warrant reevaluation and follow-up. Remainder of the anatomical assessment is complete and normal. Electronically Signed by Tommie Hernandez MD 03/12/2020 05:37 P
== END ==
LOC: M WHC 14:01
PROVIDERS: ATTEND Obstetrics & Gynecology
DX: Z36.3 Encounter for antenatal screening for malformations (principal); O34.211 Maternal care for low transverse scar from previous cesarean delivery; Z3A.20 20 weeks gestation of pregnancy

== ENCOUNTER → 2020-03-15 | Outpatient (CLI) | payer OTHER | LOC: M PLALAB 08:40 | PROVIDERS: ATTEND Advanced Practice Midwife | DX: Z36.89 Encounter for other specified antenatal screening (principal) ==

== ENCOUNTER → 2020-04-01 | Outpatient (CLI) | payer OTHER ==
[~2020-04-01] MED LIST changes: +DOCU100C16 PO; +OMEP10CASR PO; +PERCOCET PO; +PRENTAB9 PO
--- NOTE | 2020-04-02 01:12 | REP ---
OB ULTRASOUND: Real-time sonographic evaluation of gravid uterus performed. There is a single living intrauterine gestation. The estimated gestational age is 23 weeks 0 days, EDC 07/29/2020. Today's measurements indicate appropriate growth. BPD 57 mm = 23 weeks 2 days, 57th percentile HC 216 mm = 23 weeks 5 days, 69th percentile AC 174 mm = 22 weeks 2 days, 35th percentile Femur length 40 mm = 23 weeks 0 days, 49th percentile HC/AC ratio 1.24, normal range 1.03 to 1.22 Estimated weight 531 grams, 36th percentile. Cervix is closed and measures 3.7 cm in length. heart rate 143 beats per minute. position breech. Placenta posterior and grade 1 with no previa or abruption. Amniotic fluid within normal limits. Echogenic focus left ventricle is likely related to chordae tendineae. Tiny amount of fluid is again seen along the heart.
== END ==
LOC: M WHC 14:52
PROVIDERS: ATTEND Advanced Practice Midwife
DX: O34.211 Maternal care for low transverse scar from previous cesarean delivery (principal)

== ENCOUNTER → 2020-04-28 | Outpatient (REF) | payer OTHER ==
[2020-05-31 10:04] LABS: HEMATOCRIT 35.4 % (36.0-47.0); HEMOGLOBIN 11.9 g/dl (12.0-15.5); MEAN CORPUSCULAR HEMOGLOBIN 29.6 pg (27.0-33.0); MEAN CORPUSCULAR HGB CONC 33.6 g/dl (32.0-36.5); MEAN CORPUSCULAR VOLUME 88.1 fl (80.0-96.0); PLATELET COUNT, AUTOMATED 297 10^3/uL (150-450); RED BLOOD COUNT 4.02 10^6/uL (4.00-5.40); WHITE BLOOD COUNT 10.5 10^3/uL (4.0-10.0)
== END ==
LOC: M SFHCWAGY 11:59
PROVIDERS: ATTEND Obstetrics & Gynecology
DX: Z34.82 Encounter for supervision of other normal pregnancy, second trimester (principal)

== ENCOUNTER → 2020-07-05 | Outpatient (REF) | payer OTHER | LOC: M SFHCWAGY 09:50 | PROVIDERS: ATTEND Obstetrics & Gynecology | DX: Z36.89 Encounter for other specified antenatal screening (principal); Z3A.36 36 weeks gestation of pregnancy ==

== ENCOUNTER 2020-07-06 10:10 | Inpatient (IN) | payer OTHER ==
[~2020-07-06] VITALS: Ht 157.5 cm; Wt 70.9 kg
[~2020-07-06 10:10] MED LIST changes: -DOCU100C16 PO; -OMEP10CASR PO; -PERCOCET PO; -PRENTAB9 PO
[2020-07-06] MEDS ORDERED: OMEP10CASR PO (10:29)
[2020-07-06] MEDS ORDERED: PRENTAB9 PO (10:29)
[2020-07-06 10:36] VITALS: BP 132/76
[2020-07-06 11:02] LABS: HEMATOCRIT 29.9 % (36.0-47.0); HEMOGLOBIN 9.8 g/dl (12.0-15.5); MEAN CORPUSCULAR HEMOGLOBIN 25.9 pg (27.0-33.0); MEAN CORPUSCULAR HGB CONC 32.8 g/dl (32.0-36.5); MEAN CORPUSCULAR VOLUME 78.9 fl (80.0-96.0); PLATELET COUNT, AUTOMATED 284 10^3/uL (150-450); RED BLOOD COUNT 3.79 10^6/uL (4.00-5.40); WHITE BLOOD COUNT 11.1 10^3/uL (4.0-10.0)
[2020-07-06 11:21] VITALS: BP 123/69
[2020-07-06] MEDS ORDERED: ceFAZolin 2 GM/D5W 50 ML IV BAG (J0690 PER 500MG) As Ordered ONE (11:25)
[2020-07-06] MEDS ORDERED: BICITRA 30ML SOLN UDC As Ordered ONE (11:25)
[2020-07-06] MEDS ORDERED: LR 1,000 ML IV SCH ×2 (11:30→14:00)
[2020-07-06] MEDS ORDERED: ceFAZolin SOD 2 GM in IV 1 EA IV ONE (11:30)
[2020-07-06] MEDS ORDERED: BICITRA 30ML SOLN UDC PO ONE (11:30)
[2020-07-06] MEDS ORDERED: LR 1,000 ML IV ONE (11:30)
[2020-07-06] MEDS ORDERED: NALBUPHINE HCL 10 MG/ML AMP (J2300) IV PRN (12:44)
[2020-07-06] MEDS ORDERED: ONDANSETRON 4MG/2ML VIAL IV PRN ×3 (12:44→14:00)
[2020-07-06] MEDS ORDERED: diphenhydrAMINE 50MG/ML VIAL (J1200) IV PRN (12:44)
[2020-07-06] MEDS ORDERED: METOCLOPRAMIDE INJ 10MG/2ML VIAL (J2765 PER 1) IV PRN (12:44)
[2020-07-06] MEDS ORDERED: NALOXONE INJ 0.4MG/1ML VIAL (J2310 PER 1MG) IV PRN ×2 (12:44)
[2020-07-06] MEDS ORDERED: PROMETHAZINE 25 MG TAB PO PRN (13:45)
[2020-07-06] MEDS ORDERED: RHOGAM 300 MCG (1500 IU) INJ (J2790) IM SCH (13:45)
[2020-07-06] MEDS ORDERED: MEASLES,MUMPS,RUBELLA VACCINE INJ (MMR-II) (90707) SC SCH (13:45)
[2020-07-06] MEDS ORDERED: PERCOCET 5MG/325MG TAB PO PRN ×2 (13:45)
--- NOTE | 2020-07-06 13:49 | ROOPDOC ---
[facility] Report Of Operation Report of Operation DATE OF PROCEDURE: 07/06/2020 PREPROCEDURE DIAGNOSES: 37 weeks' gestation, oligohydramnios, history of prior low transverse section, satisfied parity POSTPROCEDURE DIAGNOSES: Same as preoperative PROCEDURE: Repeat low transverse section with right [place] tubal ligation (history of prior left salpingectomy) SURGEON: Deshawn Carvajal DO FACOG DRAWBRIDGE OPERATOR: Nawaf Alejo MD FACOG (Essential role in retraction, extraction, and closure of all tissue layers) ANESTHESIA: Spinal with Duramorph ESTIMATED BLOOD LOSS: 600 mL. IV FLUIDS: 1200 mL LR URINE OUTPUT: 25 mL COMPLICATIONS: None. PREOPERATIVE ANTIBIOTICS: Ancef 2g IV x 1. COMPLICATIONS: none DATA: Apgars 9 and 9. Birthweight 3100 g, 6 lbs 13 oz. SPECIMENS: none PRIMARY INDICATION FOR : prior low transverse , declines TOLAC. DESCRIPTION OF PROCEDURE: The patient was counseled on the risks, benefits, indications and alternatives of the procedure. Informed consent was obtained. She was taken to the operating room with IV running and placed on the operating table in the dorsal supine position with a leftward tilt. Regional anesthesia/epidural was bolused and found to be adequate. Sequential compression devices were placed on the lower extremities. A Bassett catheter was placed under sterile conditions. She was prepared and draped in normal sterile fashion. A time out was performed per protocol. Epidural anesthesia was again found to be adequate. A Pfannenstiel skin incision was made with the 10 blade. The 10 blade was used to dissect down to the level of the rectus sheath fascia. The rectus sheath pressure was incised midline and this was extended bilaterally with Chand scisso rs , and manual stretch. The rectus muscle bellies were dissected off the rectus sheath fascia superiorly and inferiorly using both sharp and blunt dissection. The midline was identified. The peritoneum was identified and entered digitally. The peritoneal opening was extended with manual stretch. The Mobius retractor was placed. The vesicouterine peritoneum was dissected with Metzenbaum scissors to create the bladder flap. A low transverse uterine incision was made with the 10 blade. This was extended with manual stretch. The amniotic sac was punctured, and clear fluid was noted. The head delivered through the hysterotomy without difficulty. The remainder of the body delivered with ease. The cord was doubly clamped and cut, and the baby was handed off to awaiting care. data shown above. The placenta was removed manually. The intrauterine cavity was cleared of all clot and debris. The hysterotomy was closed with 0 Vicryl in running locked fashion. This was reinforced with a second imbricating layer using 0 Vicryl in running fashion. Excellent hemostasis of the hysterotomy was noted. A right-sided [place] tubal ligation was performed without any difficulty. Excellent hemostasis was noted. The pelvis was irrigated and the fluid suctioned. The Mobius retractor was removed. The peritoneum was closed with 3-0 Vicryl running fashion. The rectus muscle bellies were reapproximated with interrupted stitches using 3-0 Vicryl. The rectus muscles bellies were hemostatic. The rectus sheath fascia was closed with 0 Vicryl running fashion. The subcutaneous layer was irrigated and the fluid suctioned. Small bleeding vessels were cauterized with Bovie. Excellent hemostasis was noted. The subcutaneous layer was reapproximated with 3-0 Vicryl running fashion. Skin was closed with 3-0 Monocryl in subcuticular fashion. An Optifoam bandage was placed over the closed incision. Sponge, needle and instrument counts were correct per protocol throughout the procedure. The patient tolerated the entire procedure very well. She was transferred to the PACU in stable condition. DO FROY Martinez JONATHAN R. DO Jul 06, 2020 13:49
[2020-07-06] MEDS ORDERED: DOCU100C16 PO (13:50)
[2020-07-06] MEDS ORDERED: PERCOCET PO (13:50)
[2020-07-06] MEDS ORDERED: IBUP80TA PO (13:50)
[2020-07-06] MEDS ORDERED: oxyCODONE 5MG TAB PO PRN (14:00)
[2020-07-06] MEDS ORDERED: OXYTOCIN DRIP 30 UNITS in IV 1 EA IV SCH (14:00)
[2020-07-06] MEDS ORDERED: fentaNYL 100 MCG/2 ML INJECTION (J3010) IV PRN (14:00)
[2020-07-06] MEDS ORDERED: OXYTOCIN 30 UNITS IN 0.9% NaCl 500ML IV BAG (J2590) As Ordered ONE (14:00)
[2020-07-06 15:10] VITALS: BP 136/65
[2020-07-06 15:45] VITALS: BP 138/69
[2020-07-06 16:45] VITALS: BP 131/73
[2020-07-06] MEDS: LR 1,000 ML IV SCH ×2 (17:22→22:00)
[2020-07-06] MEDS: KETOROLAC 30 MG/ML 1ML VIAL IV SCH (18:43)
[2020-07-06] MEDS: DOCUSATE SODIUM 100 MG CAP PO SCH (20:52)
[2020-07-07] MEDS: KETOROLAC 30 MG/ML 1ML VIAL IV SCH ×2 (00:51→06:29)
[2020-07-07 06:09] VITALS: BP 112/71
[2020-07-07 07:06] LABS: HEMATOCRIT 24.5 % (36.0-47.0); HEMOGLOBIN 8.1 g/dl (12.0-15.5); MEAN CORPUSCULAR HEMOGLOBIN 26.3 pg (27.0-33.0); MEAN CORPUSCULAR HGB CONC 33.1 g/dl (32.0-36.5); MEAN CORPUSCULAR VOLUME 79.5 fl (80.0-96.0); PLATELET COUNT, AUTOMATED 220 10^3/uL (150-450); RED BLOOD COUNT 3.08 10^6/uL (4.00-5.40)
--- NOTE | 2020-07-07 07:31 | IPNPDOC ---
Progress Note Date of Service: Jul 07, 2020 Day#: 1 Progress Note SUBJECT: Doing well without complaints. Ambulating, voiding and pain is well- controlled. Reports minimal lochia. OBJECTIVE: VITAL SIGNS: Within normal limits, afebrile. Alert and oriented times three. Abdomen: Fundus firm at U-2. Soft, NTTP. Incision: dressed Ext: neg calf tenderness. ASSESSMENT: /postoperative day #1 status post delivery. Recovering in stable condition. PLAN: 1. Continue routine /postoperative care 2. Discharge plans for tomorrow VS, I&O, 24H, Fishbone Vital Signs/I&O Vital Signs Date Time Temp Pulse Resp B/P (MAP) Pulse Ox O2 Delivery O2 Flow Rate FiO2 07/07/20 06:09 97.9 77 18 112/71 (85) 97 Room Air I&O- Last 24 Hours up to 6 AM 07/07/20 05:59 Intake Total 1700 ml Output Total 1300 ml Balance 400 ml Laboratory Data 24H LABS Laboratory Tests 2 07/06/20 10:32: Serology Scanned Report Hepatitis B Testing 07/06/20 10:38: Nucleated Red Blood Cells % (auto) 0.0, Syphilis Serology NONREACTIVE 07/07/20 06:53: Nucleated Red Blood Cells % (auto) 0.0 CBC/BMP Laboratory Tests 07/06/20 10:38 07/07/20 06:53 BRIDGETT GARCIA MD. Jul 07, 2020 07:31
[2020-07-07] MEDS: PRENATAL VITAMINS CHEWABLE TABLET PO SCH (07:42)
[2020-07-07] MEDS: DOCUSATE SODIUM 100 MG CAP PO SCH ×2 (07:42→20:14)
[2020-07-07 10:00] VITALS: BP 118/78
[2020-07-07 14:00] VITALS: BP 128/73
[2020-07-07] MEDS: IBUPROFEN 800 MG TAB PO SCH ×2 (14:53→22:50)
[2020-07-07 18:00] VITALS: BP_SYST 118; BP_DIAS 69; BP_DIAS 73
[2020-07-07 22:00] VITALS: BP 114/57
[2020-07-08 02:00] VITALS: BP 122/62
[2020-07-08 06:00] VITALS: BP 125/76
[2020-07-08] MEDS: PRENATAL VITAMINS CHEWABLE TABLET PO SCH (08:12)
[2020-07-08] MEDS: DOCUSATE SODIUM 100 MG CAP PO SCH (08:12)
[2020-07-08] MEDS: IBUPROFEN 800 MG TAB PO SCH (08:13)
--- NOTE | 2020-07-08 09:54 | DSES ---
DATE OF ADMISSION: 07/06/2020 DATE OF DISCHARGE: HISTORY: Maddie is a 25-year-old 4 para 3-0-1-3 now who underwent repeat section with bilateral tubal ligation on 07/06/2020. SURGEON: Dr. Deshawn Carvajal PROPERTY HANDLER: Dr. Boris Alejo DISCHARGE DIAGNOSIS: Repeat section with tubal; postop day two; stable. HISTORY: Maddie's operative course was uncomplicated. She had delivered a live female weighing 3100 grams (6 pounds 13 ounces), Apgars 9 and 9; estimated blood loss was 600 mL. Her postoperative course has been uncomplicated. She is well. She is voiding without difficulty and passing flatus. She is tolerating p.o. fluids and a regular diet. She has been out of bed for self- care, mary care and infant care. She does desire discharge home today. Her pain is well managed with p.o. pain medications. OBJECTIVE: Temp 97.5, pulse 71, respirations 18, blood pressure is 125/76. She is alert and oriented x3 and she does not appear in any discomfort. CBC preoperatively on 07/06/2020: Hemoglobin 9.8, hematocrit 29.9, platelets 284. Postoperative CBC on 07/07/2020: Hemoglobin 8.1, hematocrit 24.5, platelets 220. Breasts are soft and nontender. Nipples are intact. Fundus is firm at umbilicus. Incision has dressing applied. There is no new drainage noted. Her perineum is intact with lochia rubra scant. PLAN: Discharge the patient home today. Prescriptions for her pain medications have been E-prescribed by Dr. Deshawn Carvajal to her pharmacy for Percocet and ibuprofen. I reviewed discharge instructions that included breast care, incision care, mary care, pelvic rest, activity and lifting restrictions, danger signs to report and access to her care provider. She is to follow up for a two-week incision check and an eight-week visit with Dr. Carvajal. All of her questions have been answered and she desires discharge home. [facility]
== END 2020-07-08 12:30 | disposition home or self-care (01) | DRG 784 ==
LOC: M LDI 10:10 → M OBS 15:00
PROVIDERS: ADMIT Specialist; ATTEND Obstetrics & Gynecology
PROC: 0UB50ZZ Excision of Right Fallopian Tube, Open Approach (ICD-10-PCS; 2020-07-06)
PROC: 10D00Z1 Extraction of Products of Conception, Low, Open Approach (ICD-10-PCS; principal; 2020-07-06 12:48)
DX: O34.211 Maternal care for low transverse scar from previous cesarean delivery (principal); O41.03X0 Oligohydramnios, third trimester, not applicable or unspecified; Z3A.38 38 weeks gestation of pregnancy; Z37.0 Single live birth; Z30.2 Encounter for sterilization

== ENCOUNTER → 2020-12-03 | Outpatient (REF) | payer OTHER ==
[~2020-12-03] MED LIST changes: +DOCU100C16 PO; +OMEP10CASR PO; +PERCOCET PO; +PRENTAB9 PO
== END ==
LOC: M SFHCWAGY 17:17
PROVIDERS: ATTEND Obstetrics & Gynecology
DX: Z12.4 Encounter for screening for malignant neoplasm of cervix (principal)

== ENCOUNTER → 2021-02-16 | Outpatient (CLI) | payer OTHER ==
[2021-02-16 08:42] LABS: BASO # 0.1 10^3/uL (0.0-0.2); BASO % 1.4 % (0.0-1.0); EOS % 0.7 % (0.0-3.0); HEMATOCRIT 41.7 % (36.0-47.0); HEMOGLOBIN 13.6 g/dl (12.0-15.5); LYMPH # 1.9 10^3/uL (1.5-5.0); LYMPH % 33.5 % (24.0-44.0); MEAN CORPUSCULAR HEMOGLOBIN 27.7 pg (27.0-33.0); MEAN CORPUSCULAR HGB CONC 32.6 g/dl (32.0-36.5); MEAN CORPUSCULAR VOLUME 84.9 fl (80.0-96.0); MONO # 0.4 10^3/uL (0.0-0.8); MONO % 7.9 % (2.0-8.0); NEUTROPHILS # 3.1 10^3/uL (1.5-8.5); NEUTROPHILS % 56.1 % (36.0-66.0); PLATELET COUNT, AUTOMATED 319 10^3/uL (150-450); RED BLOOD COUNT 4.91 10^6/uL (4.00-5.40); WHITE BLOOD COUNT 5.6 10^3/uL (4.0-10.0)
[2021-02-16 09:16] LABS: ALBUMIN 3.9 GM/DL (3.2-5.2); ALT/SGPT 16 U/L (12-78); BILIRUBIN,TOTAL 0.5 MG/DL (0.2-1.0); BLOOD UREA NITROGEN 9 MG/DL (7-18); CALCIUM LEVEL 8.7 MG/DL (8.5-10.1); CARBON DIOXIDE LEVEL 26 MEQ/L (21-32); CHLORIDE LEVEL 110 MEQ/L (98-107); CHOLESTEROL LEVEL 174 MG/DL (<200); CHOLESTEROL RISK RATIO 2.597 (<5); CREATININE FOR GFR 0.55 MG/DL (0.55-1.30); FERRITIN 9 NG/ML (8-252); FREE T4 0.78 NG/DL (0.76-1.46); GLOMERULAR FILTRATION RATE > 60.0 (>60); GLUCOSE, FASTING 87 MG/DL (70-100); HDL CHOLESTEROL 67 MG/DL (>40); LDL CHOLESTEROL 95 MG/DL (<100); LIPASE 181 U/L (73-393); NON-HDL-C 107 MG/DL; POTASSIUM SERUM 4.1 MEQ/L (3.5-5.1); SODIUM LEVEL 142 MEQ/L (136-145); TOTAL PROTEIN 7.1 GM/DL (6.4-8.2); TRIGLYCERIDES LEVEL 58 MG/DL (<150)
[2021-02-16 09:18] LABS: PTH INTACT 87.2 PG/ML (18.5-88.0); TOTAL 25(OH) VITAMIN D 14.9 NG/ML (30.0-100.0); VITAMIN B12 LEVEL 1000 PG/ML (247-911)
[2021-02-16 10:51] LABS: HEMOGLOBIN A1c 5.1 %
[2021-02-17 08:09] LABS: H PYLORI SERUM QUANT IgG ABY 0.1 (0.00-0.79)
== END ==
LOC: M LAB 08:12
PROVIDERS: ATTEND Family Medicine
DX: E55.9 Vitamin D deficiency, unspecified (principal); R10.9 Unspecified abdominal pain; Z83.3 Family history of diabetes mellitus

== ENCOUNTER → 2021-03-18 | Outpatient (CLI) | payer OTHER ==
[~2021-03-18] MED LIST changes: +E-Z-GAS II EFFERVESCENT PACKET (SODIUM BICARB./CITRIC ACID/SIMETHICONE) As Ordered ONE; +E-Z-HD 98% w/w 340GM SUSP BTL As Ordered ONE; +E-Z-PAQUE 96% w/w SUSP 176GM BTL As Ordered ONE
--- NOTE | 2021-03-22 13:41 | REP ---
INDICATION: GERD. COMPARISON: None. TECHNIQUE: The procedure was performed under the direct supervision of Dr. Francis. The images were reviewed with Dr. Francis. Liquid barium and gas producing crystals were given in the erect position as well as liquid barium in the prone oblique position in order to perform a double contrast upper GI examination. Additionally liquid barium was given at the end of the examination in order to perform a small bowel follow through. A combination od fluoroscopy, spot films and last image hold technology was utilized, 1.6 minutes of fluoro time was utilized for this procedure. FINDINGS: The oil burner film shows no organomegaly or pathological masses. The intestinal gas pattern is non-specific. The oral and pharyngeal stages of deglutition are unremarkable. Esophageal transport is prompt and efficient and there is no esophagitis, stricture, mucosal ring or hiatal hernia. There is gastroesophageal reflux demonstrated to the level of the roel. The stomach buck are normally outlined. The rugal folds are smooth and regular. There is no gastritis neoplasm or ulcer disease. The duodenal buck are normally outlined. There is a small duodenal diverticulum identified. The mucosal folds are smooth and regular. There is no duodenitis pancreatitis peptic ulcer disease or neoplasm. The visualized portion of the proximal small bowel appears normal in course and caliber. The barium column was followed through the small bowel to the level of the terminal ileum. Small bowel transit time is approximately 30 minutes. During fluoroscopy gentle palpation shows all loops are freely movable and pliable. There are no fixed or angulated loops. The small bowel mucosal pattern is normal in course and caliber. There is no transition to suggest a partial small-bowel obstruction. Spot filming of the terminal ileum shows it to be unremarkable. IMPRESSION: 1. There is gastroesophageal reflux demonstrated to the level of the roel. 2. There is a small duodenal diverticulum identified. <Electronically signed by Hermilo Fuller > 03/18/21 [id number] <Electronically signed by Doyle Francis > 03/22/21 [id number]
== END ==
LOC: M RAD 08:51
PROVIDERS: ATTEND Family Medicine
DX: K21.9 Gastro-esophageal reflux disease without esophagitis (principal); K57.10 Diverticulosis of small intestine without perforation or abscess without bleeding

== ENCOUNTER 2021-05-16 08:55 | Outpatient (RCR) | payer OTHER ==
[~2021-05-16 08:55] MED LIST changes: -E-Z-GAS II EFFERVESCENT PACKET (SODIUM BICARB./CITRIC ACID/SIMETHICONE) As Ordered ONE; -E-Z-HD 98% w/w 340GM SUSP BTL As Ordered ONE; -E-Z-PAQUE 96% w/w SUSP 176GM BTL As Ordered ONE
== END 2021-05-17 ==
LOC: M PT 08:55
PROVIDERS: ATTEND Orthopaedic Surgery
DX: M25.561 Pain in right knee (principal); M76.51 Patellar tendinitis, right knee

== ENCOUNTER 2021-05-27 13:15 | Outpatient (RCR) | payer OTHER | END 2021-06-16 | LOC: M PT 13:15 | PROVIDERS: ATTEND Orthopaedic Surgery | DX: M25.561 Pain in right knee (principal) ==

== ENCOUNTER → 2021-06-23 | Outpatient (CLI) | payer OTHER ==
[2021-06-23 14:50] LABS: BASO # 0.1 10^3/uL (0.0-0.2); BASO % 0.7 % (0.0-1.0); EOS # 0.1 10^3/uL (0.0-0.5); EOS % 0.9 % (0.0-3.0); HEMATOCRIT 39.5 % (36.0-47.0); HEMOGLOBIN 13.4 g/dl (12.0-15.5); LYMPH # 2.4 10^3/uL (1.5-5.0); LYMPH % 31.9 % (24.0-44.0); MEAN CORPUSCULAR HEMOGLOBIN 27.8 pg (27.0-33.0); MEAN CORPUSCULAR HGB CONC 33.9 g/dl (32.0-36.5); MONO # 0.5 10^3/uL (0.0-0.8); MONO % 6.8 % (2.0-8.0); NEUTROPHILS # 4.5 10^3/uL (1.5-8.5); PLATELET COUNT, AUTOMATED 338 10^3/uL (150-450); RED BLOOD COUNT 4.82 10^6/uL (4.00-5.40); WHITE BLOOD COUNT 7.6 10^3/uL (4.0-10.0)
[2021-06-23 15:36] LABS: COLLAGEN EPINEPHRINE 151 SECONDS (74-162)
[2021-06-23 16:16] LABS: ALBUMIN 3.8 GM/DL (3.2-5.2); BLOOD UREA NITROGEN 11 MG/DL (7-18); CALCIUM LEVEL 9.4 MG/DL (8.5-10.1); CARBON DIOXIDE LEVEL 26 MEQ/L (21-32); CHLORIDE LEVEL 105 MEQ/L (98-107); CREATININE FOR GFR 0.64 MG/DL (0.55-1.30); FERRITIN 16 NG/ML (8-252); GLOMERULAR FILTRATION RATE > 60.0 (>60); GLUCOSE, FASTING 102 MG/DL (70-100); PHOSPHORUS LEVEL 3.2 MG/DL (2.5-4.9); POTASSIUM SERUM 4.1 MEQ/L (3.5-5.1); SODIUM LEVEL 139 MEQ/L (136-145)
[2021-06-23 16:21] LABS: PTH INTACT 32.3 PG/ML (18.5-88.0)
== END ==
LOC: M LAB 13:24
PROVIDERS: ATTEND Family Medicine
DX: D50.9 Iron deficiency anemia, unspecified (principal); E55.9 Vitamin D deficiency, unspecified; R23.8 Other skin changes

== ENCOUNTER → 2021-07-01 | Outpatient (CLI) | payer OTHER ==
--- NOTE | 2021-07-01 14:06 | REPVR ---
PROCEDURE INFORMATION: Exam: CT Maxillofacial Without Contrast, Sinus Exam date and time: 07/01/2021 1:28 PM Age: 26 years old Clinical indication: Sinusitis; Acute recurrent; Additional info: Recurrent sinusitis TECHNIQUE: Imaging protocol: CT Maxillofacial without contrast. Focus on the sinuses. Radiation optimization: All CT scans at this facility use at least one of these dose optimization techniques: automated exposure control; mA and/or kV adjustment per patient size (includes targeted exams where dose is matched to clinical indication); or iterative reconstruction. COMPARISON: No relevant prior studies available. FINDINGS: Frontal sinuses: Normal. No air-fluid levels. Ethmoid air cells: Normal. No air-fluid levels. Sphenoid sinuses: Normal. No air-fluid levels. Maxillary sinuses: Normal. No air-fluid levels. Ostiomeatal units are patent. Nasal cavity/Septum: There is leftward nasal septal deviation with a spur. This impinges upon the left inferior nasal turbinate. Orbital cavity: Orbits are normal. Globes are unremarkable. Bones/joints: Unremarkable. Soft tissues: Unremarkable. IMPRESSION: No significant sinus mucosal disease. Electronically signed by: Amanda Field On 07/01/2021 14:06:16 PM
== END ==
LOC: M RAD 13:18
PROVIDERS: ATTEND Family Medicine
DX: J32.9 Chronic sinusitis, unspecified (principal)

== ENCOUNTER → 2022-05-06 | Outpatient (CLI) | payer OTHER ==
[2022-05-06 09:37] LABS: BASO # 0.1 10^3/uL (0.0-0.2); BASO % 1.1 % (0.0-1.0); EOS % 0.5 % (0.0-3.0); HEMATOCRIT 41.9 % (36.0-47.0); HEMOGLOBIN 14.3 g/dl (12.0-15.5); LYMPH # 2.1 10^3/uL (1.5-5.0); LYMPH % 37.3 % (24.0-44.0); MEAN CORPUSCULAR HEMOGLOBIN 27.8 pg (27.0-33.0); MEAN CORPUSCULAR HGB CONC 34.1 g/dl (32.0-36.5); MEAN CORPUSCULAR VOLUME 81.5 fl (80.0-96.0); MONO # 0.5 10^3/uL (0.0-0.8); NEUTROPHILS # 2.9 10^3/uL (1.5-8.5); NEUTROPHILS % 51.7 % (36.0-66.0); PLATELET COUNT, AUTOMATED 300 10^3/uL (150-450); RED BLOOD COUNT 5.14 10^6/uL (4.00-5.40); WHITE BLOOD COUNT 5.6 10^3/uL (4.0-10.0)
[2022-05-06 09:55] LABS: HEMOGLOBIN A1c 5.1 %
[2022-05-06 10:26] LABS: ALBUMIN 4.1 GM/DL (3.2-5.2); ALT/SGPT 22 U/L (12-78); BILIRUBIN,TOTAL 0.4 MG/DL (0.2-1.0); BLOOD UREA NITROGEN 6 MG/DL (7-18); CALCIUM LEVEL 9.1 MG/DL (8.5-10.1); CARBON DIOXIDE LEVEL 25 MEQ/L (21-32); CHLORIDE LEVEL 106 MEQ/L (98-107); CHOLESTEROL LEVEL 176 MG/DL (<200); CREATININE FOR GFR 0.63 MG/DL (0.55-1.30); FERRITIN 8 NG/ML (8-252); GLOMERULAR FILTRATION RATE > 60.0 (>60); GLUCOSE, FASTING 102 MG/DL (70-100); HDL CHOLESTEROL 64 MG/DL (>40); LDL CHOLESTEROL 89 MG/DL (<100); NON-HDL-C 112 MG/DL; POTASSIUM SERUM 4.2 MEQ/L (3.5-5.1); SODIUM LEVEL 135 MEQ/L (136-145); TOTAL PROTEIN 7.2 GM/DL (6.4-8.2); TRIGLYCERIDES LEVEL 113 MG/DL (<150)
[2022-05-08 10:25] LABS: PTH INTACT 48.4 PG/ML (18.5-88.0)
== END ==
LOC: M LAB 08:37
PROVIDERS: ATTEND Family Medicine
DX: D50.9 Iron deficiency anemia, unspecified (principal)

== ENCOUNTER → 2022-05-21 | Outpatient (CLI) | payer OTHER ==
[2022-05-21 09:44] LABS: FREE T4 0.81 NG/DL (0.76-1.46); THYROID STIMULATING HORMONE 0.981 uIU/ML (0.358-3.740)
[2022-05-23 11:03] LABS: CORTISOL AM 13.5 UG/DL (4.3-22.4); LUTEINIZING HORMONE 2.5 mIU/mL; PROLACTIN 7.6 NG/ML
[2022-05-23 11:05] LABS: ESTRADIOL 22.4 PG/ML
[2022-05-23 11:06] LABS: FOLLICLE STIMULATING HORMONE 5.6 mIU/mL
[2022-05-23 20:07] LABS: SEX HORMONE BINDING GLOBULIN 39.1 nmol/L (24.6-122.0); TESTOSTERONE FREE (DIRECT) 1.2 pg/mL (0.0-4.2); TESTOSTERONE TOTAL FOR T&D < 3.0 ng/dL (13-71)
== END ==
LOC: M LAB 08:21
PROVIDERS: ATTEND Family Medicine
DX: N93.9 Abnormal uterine and vaginal bleeding, unspecified (principal)

== ENCOUNTER → 2022-07-07 | Outpatient (CLI) | payer OTHER | LOC: M WHC 11:31 | PROVIDERS: ATTEND Obstetrics & Gynecology | DX: N93.9 Abnormal uterine and vaginal bleeding, unspecified (principal); N88.8 Other specified noninflammatory disorders of cervix uteri ==

== ENCOUNTER → 2023-09-05 | Outpatient (CLI) | payer OTHER | LOC: M RAD 07:22 | PROVIDERS: ATTEND Obstetrics & Gynecology | DX: N93.9 Abnormal uterine and vaginal bleeding, unspecified (principal) ==

== ENCOUNTER → 2024-01-02 | Outpatient (CLI) | payer OTHER ==
[2024-01-02 08:34] LABS: HEMATOCRIT 40.9 % (36.0-47.0); HEMOGLOBIN 13.7 g/dl (12.0-15.5); MEAN CORPUSCULAR HEMOGLOBIN 28.5 pg (27.0-33.0); MEAN CORPUSCULAR HGB CONC 33.5 g/dl (32.0-36.5); PLATELET COUNT, AUTOMATED 353 10^3/uL (150-450); RED BLOOD COUNT 4.81 10^6/uL (4.00-5.40); WHITE BLOOD COUNT 7.1 10^3/uL (4.0-10.0)
[2024-01-02 08:49] LABS: HEMOGLOBIN A1c 4.8 % (4.0-6.0)
[2024-01-02 09:05] LABS: ALBUMIN 3.6 G/DL (3.2-5.2); ALKALINE PHOSPHATASE 72 U/L (46-116); ALT/SGPT 17 U/L (7.0-40); AST/SGOT 8 U/L (<34); BILIRUBIN,TOTAL 0.6 MG/DL (0.3-1.2); BLOOD UREA NITROGEN 8 MG/DL (9-23); CALCIUM LEVEL 9.3 MG/DL (8.5-10.1); CARBON DIOXIDE LEVEL 26 MMOL/L (20-31); CHLORIDE LEVEL 107 MMOL/L (98-107); CREATININE FOR GFR 0.65 MG/DL (0.55-1.30); GLOMERULAR FILTRATION RATE > 60.0 (>60); GLUCOSE, FASTING 91 MG/DL (60-100); SODIUM LEVEL 139 MMOL/L (136-145); TOTAL PROTEIN 6.6 G/DL (5.7-8.2)
[2024-01-02 09:07] LABS: FOLATE 14.3 NG/ML (>5.4); THYROID STIMULATING HORMONE 1.591 uIU/ML (0.55-4.78); TOTAL 25(OH) VITAMIN D 28.6 NG/ML (20.0-100.0)
[2024-01-02 09:08] LABS: VITAMIN B12 LEVEL 1122 PG/ML (211-911)
== END ==
LOC: M LAB 07:51
PROVIDERS: ATTEND Obstetrics & Gynecology
DX: R53.82 Chronic fatigue, unspecified (principal)

== ENCOUNTER 2024-01-18 08:50 | Observation (INO) | payer OTHER ==
[2024-01-18] VITALS (8 sets, daily range): BP systolic 110–129; BP diastolic 59–75; TEMP 97.5–98.4; O2SAT 94–98
[~2024-01-18] VITALS: Ht 157.5 cm; Wt 68.2 kg
[~2024-01-18 08:50] MED LIST changes: +IRON65TA2 PO; +KETOROLAC 60MG 2ML VIAL As Ordered ONE; +OMEP40CA5 PO
[2024-01-18] MEDS ORDERED: LR 1,000 ML IV SCH ×2 (09:15→13:20)
[2024-01-18] MEDS ORDERED: ONDANSETRON 4MG 2ML VIAL IV PRN ×2 (09:15→13:20)
[2024-01-18 09:30] LABS: HEMATOCRIT 40.5 % (36.0-47.0); MEAN CORPUSCULAR HEMOGLOBIN 29.2 pg (27.0-33.0); MEAN CORPUSCULAR HGB CONC 34.6 g/dl (32.0-36.5); MEAN CORPUSCULAR VOLUME 84.4 fl (80.0-96.0); PLATELET COUNT, AUTOMATED 373 10^3/uL (150-450); WHITE BLOOD COUNT 6.2 10^3/uL (4.0-10.0)
[2024-01-18] MEDS: ceFAZolin SOD 2 GM in IV 1 EA IV ONE (10:00)
[2024-01-18] MEDS ORDERED: HOME MED LIST COMPLETE! XX SCH (10:25)
[2024-01-18] MEDS ORDERED: ROCURONIUM BROMIDE 50MG/5ML VIAL As Ordered ONE (11:24)
[2024-01-18] MEDS ORDERED: SUGAMMADEX SODIUM 500 MG/5 ML VIAL (BRIDION) As Ordered ONE (11:24)
[2024-01-18] MEDS ORDERED: ONDANSETRON 4MG 2ML VIAL As Ordered ONE (11:24)
[2024-01-18] MEDS ORDERED: fentaNYL 100 MCG/2 ML INJECTION As Ordered ONE (11:24)
[2024-01-18] MEDS ORDERED: MIDAZOLAM INJ 2MG/2ML VIAL As Ordered ONE (11:24)
[2024-01-18] MEDS ORDERED: LIDOCAINE 2% 100MG/5ML SDV (FOR ANES.) As Ordered ONE (11:24)
[2024-01-18] MEDS ORDERED: propofoL 200 MG/20 ML VIAL As Ordered ONE (11:24)
[2024-01-18] MEDS ORDERED: ACETAMINOPHEN 1000MG 100ML IV BAG As Ordered ONE (11:24)
[2024-01-18] MEDS ORDERED: HYDROmorphone HCL 2MG/ML 1ML VIAL As Ordered ONE (11:24)
[2024-01-18] MEDS: METHYLENE BLUE 0.5% (5MG/ML) 10 ML AMP (PROVAYBLUE) As Ordered ONE (12:00)
[2024-01-18] MEDS ORDERED: fentaNYL 100 MCG/2 ML INJECTION IV PRN (13:05)
[2024-01-18] MEDS ORDERED: MEPERIDINE 25 MG/ML 1ML VIAL IV PRN (13:05)
[2024-01-18] MEDS ORDERED: METOCLOPRAMIDE INJ 10MG/2ML VIAL IV PRN (13:05)
[2024-01-18] MEDS ORDERED: PROMETHAZINE 25MG/ML 1ML VIAL IV PRN (13:20)
[2024-01-18] MEDS ORDERED: PERCOCET 5MG/325MG TAB PO PRN (13:20)
[2024-01-18] MEDS ORDERED: MORPHINE 4 MG/ML 1ML VIAL IV PRN (13:20)
[2024-01-18] MEDS: oxyCODONE 5MG TAB PO PRN (13:43)
[2024-01-18] MEDS: HYDROMORPHONE HCL 0.5 MG/ 0.5 ML SYRINGE IV PRN (13:43)
[2024-01-18] MEDS: KETOROLAC 30 MG/ML 1ML VIAL IV SCH (18:44)
[2024-01-18] MEDS: DOCUSATE SODIUM 100MG CAPSULE PO SCH (20:53)
[2024-01-19 02:00] VITALS: BP 108/59; TEMP 97.6; O2SAT 96
[2024-01-19 06:00] VITALS: BP 107/57; TEMP 98.1; O2SAT 97
[2024-01-19 10:00] VITALS: BP 118/76; TEMP 97.6; O2SAT 100
[2024-01-19] MEDS: PERCOCET 5MG/325MG TAB PO PRN (11:58)
[2024-01-19] MEDS: IBUPROFEN 800 MG TAB PO SCH (14:51)
== END 2024-01-19 14:55 | disposition home or self-care (01) ==
LOC: M SDC 08:50 → M ED INP 14:20 → M OBS 14:21
PROVIDERS: ADMIT Obstetrics & Gynecology; ATTEND Obstetrics & Gynecology
DX: N93.9 Abnormal uterine and vaginal bleeding, unspecified (principal); R10.2 Pelvic and perineal pain; K21.9 Gastro-esophageal reflux disease without esophagitis; D64.9 Anemia, unspecified; Z79.899 Other long term (current) drug therapy; Z88.2 Allergy status to sulfonamides
CPT/HCPCS: 36415; 58571; 81025; 85027; 86850; 86900; 86901; 88307; 96374; 96376; J0131; J0665; J0690; J1100; J1170; J1885; J2250; J2405; J3010; Q9968; S2900